=== PATIENT | female | born 1980 | race African-American/Black ===

== ENCOUNTER 2018-09-20 17:04 | Inpatient (IN) | payer OTHER ==
[2018-09-20 18:45] VITALS: BMI 34.9
--- NOTE | 2018-09-20 18:56 | HP ---
CIWA Score - Admission Criteria [facility]ASAS Guidelines: Admission for Medically Managed Detox: Requires at least one of the followin. CIWA greater than 12 2. Seizures within the past 24 hours 3. Delirium tremens within the past 24 hours 4. Hallucinations within the past 24 hours 5. Acute intervention needed for co occurring medical disorder 6. Acute intervention needed for co occurring psychiatric disorder 7. Severe withdrawal that cannot be handled at a lower level of care (continued vomiting, continued diarrhea, abnormal vital signs) requiring intravenous medication and/or fluids 8. Admission ROS [facility] Chief Complaint: SEEKING REHAB SERVICES FOR COCAINE DEPENDENCE. Allergies/Adverse Reactions: Allergies Allergy/AdvReac Type Severity Reaction Status Date / Time Fish Containing Products Allergy Verified 09/20/18 18:46 Penicillins Allergy Verified 09/20/18 18:45 History of Present Illness: 38 Y.O. FEMALE W/ HX/O OPIOID DEPENDENCE HERE FOR REHAB SERVICES. CLIENT IS REFERRED BY [facility] AFTER BEING DETAINEED [facility] FOR 2.5 WEEKS. WHILE THERE SHE WAS STARTED ON METHADONE VIA KEEP PROGRAM. CLIENT REPORTS HER DOSE 60 MG LDM TODAY/ PENDING VERIFICATION. THIS I8S HER FIRST ADMISSION HERE. SHE IS KNOWN TO OTHER DETOX/REHAB SERVICES. LAST BEING AT [facility]. REPORTS LONGEST CLEAN TIME 3 YEARS THROUGH RESIDENTIAL PROGRAM AND THEN SELF MAINTAINED. DENIES HX./O DRUG OVERDOSE, SI/HI, AVH, SEIZURE D/O. SHE REPORTS THAT SHE IS COURT MANDATED. PRIOR TO BEING INCARCERATED CLIENT REPORTS THAT SHE WAS HOMELESS PMHX- HEPC NO TXMNET PSYCH- HX/O BIPOLAR, PTSD MEDS- DENIES Exam Limitations: No Limitations - Ebola screening Have you traveled outside of the country in the last 21 days: No (N) Have you had contact with anyone from an Ebola affected area: No Have you been sick,other than usual withdrawal symptoms: No Do you have a fever: No - Review of Systems Constitutional: No Symptoms Reported EENT: reports: No Symptoms Reported Respiratory: reports: No Symptoms reported Cardiac: reports: No Symptoms Reported GI: reports: Constipated : reports: No Symptoms Reported Musculoskeletal: reports: No Symptoms Reported Integumentary: reports: No Symptoms Reported Neuro: reports: No Symptoms reported Endocrine: reports: No Symptoms Reported Hematology: reports: No Symptoms Reported Psychiatric: reports: No Sypmtoms Reported Other Systems: Reviewed and Negative Patient History - Patient Medical History Hx Anemia: No Hx Asthma: No Hx Chronic Obstructive Pulmonary Disease (COPD): No Hx Cancer: No Hx Cardiac Disorders: No Hx Congestive Heart Failure: No Hx Hypertension: No Hx Hypercholesterolemia: No Hx Pacemaker: No HX Cerebrovascular Accident: No Hx Seizures: No Hx Dementia: No Hx Diabetes: No Hx Gastrointestinal Disorders: No Hx Liver Disease: No Hx Genitourinary Disorders: No Hx Sexually Transmitted Disorders: No Hx Renal Disease (ESRD): No Hx Thyroid Disease: No Hx Human Immunodeficiency Virus (HIV): No Hx Hepatitis C: No Hx Depression: No Hx Suicide Attempt: No Hx Bipolar Disorder: Yes Hx Schizophrenia: No Other Medical History: PTSD - Patient Surgical History Past Surgical History: Yes Hx Lung Surgery: Yes (THORACENTESIS) Hx Section: Yes (X1) Anesthesia Reaction: No - PPD History Previous Implant?: Yes Documented Results: Negative w/o proof Implanted On Prior [facility] Admission?: No PPD to be Administered?: Yes - Reproductive History Patient is a Female of Child Bearing Age (11 -55 yrs old): Yes Last Menstrual Period: 09/14/18 Patient : No (NEG CG) - Smoking Cessation Smoking history: Current every day smoker Have you smoked in the past 12 months: Yes Aproximately how many cigarettes per day: 10 Cigars Per Day: 0 Hx Chewing Tobacco Use: No Initiated information on smoking cessation: Yes 'Breaking Loose' booklet given: 09/20/18 - Substance & Tx. History Hx Alcohol Use: No Hx Substance Use: Yes Substance Use Type: Cocaine, Heroin Hx Substance Use Treatment: Yes ([facility]) - Substances Abused Heroin Route: Injection Frequency: Daily Amount used: 2 BUNDLE Age of first use: 25 Date of Last Use: 09/03/18 Cocaine Route: Smoking Frequency: Daily Amount used: 150$ Age of first use: 25 Date of Last Use: 09/03/18 Family Disease History - Family Disease History Family Disease History: Other: Father (COCAINE/CRACK), Mother (HEROIN ADDICT) Admission Physical Exam [facility] - Vital Signs Vital Signs: Vital Signs - 24 hr 09/20/18 18:31 Temperature 98.2 F Pulse Rate 77 Respiratory 18 Rate Blood Pressure 126/65 - Physical General Appearance: Yes: No Apparent Distress, Appropriately Dressed HEENTM: Yes: EOMI, Normocephalic, Normal Voice, EDER, Pharynx Normal, Other ( EYE GLASSESS) Respiratory: Yes: Chest Non-Tender, Lungs Clear, Normal Breath Sounds, No Respiratory Distress, No Accessory Muscle Use Neck: Yes: No masses,lesions,Nodules, Supple, Trachea in good position Breast: Yes: Breast Exam Deferred Cardiology: Yes: Regular Rhythm, Regular Rate, S1, S2, Edema (BLE), Murmur Abdominal: Yes: Normal Bowel Sounds, Non Tender, Soft, Protuberent Genitourinary: Yes: Within Normal Limits Back: Yes: Normal Inspection Musculoskeletal: Yes: full range of Motion, Gait Steady Extremities: Yes: Normal Capillary Refill, Normal Range of Motion, Non-Tender, Swelling (BLE) Neurological: Yes: cafe server II-XII NML intact, Fully Oriented, Alert, Motor Strength 5/5, Normal Mood/Affect Integumentary: Yes: Dry, Warm Lymphatic: Yes: Within Normal Limits - Diagnostic (1) Uncomplicated opioid dependence Current Visit: Yes Status: Chronic (2) Cocaine dependence, uncomplicated Current Visit: Yes Status: Chronic (3) Nicotine dependence Current Visit: Yes Status: Acute Qualifiers: Nicotine product type: cigarettes Substance use status: in withdrawal Qualified Code(s): F17.213 - Nicotine dependence, cigarettes, with withdrawal (4) History of hepatitis C Current Visit: Yes Status: Chronic (5) Homeless Current Visit: Yes Status: Suspected (6) Substance induced mood disorder Current Visit: Yes Status: Chronic (7) Murmur, cardiac Current Visit: Yes Status: Chronic Cleared for Admission [facility] - Detox or Rehab Detox Regimen/Protocol: Not Applicable Claeared for Rehab Admission: Yes [facility] Breath Alcohol Content Breath Alcohol Content: 0 Urine Pregancy Test - Result Urine Test Results: Negative- NO Line Present Urine Drug Screen - Results Drug Screen Negative: No Urine Drug Screen Results: MTD-Methadone Inpatient Rehab Admission - Initial Determination Are CD services needed?: Yes Free of communicable disease: Yes Not in need of hospitalization: Yes - Rehab Admission Criteria Previous failed treatment: Yes Poor recovery environment: Yes Comorbidities: Yes Lacks judgement: No Patient is meeting Inpatient Rehab admission criteria:: Yes
[2018-09-20] MEDS ORDERED: MAGNESIUM CITRATE 300 ML BOTTLE PO PRN (19:11)
[2018-09-20] MEDS ORDERED: LOPERAMIDE HCL 2 MG CAPSULE PO PRN (19:11)
[2018-09-20] MEDS ORDERED: NICOTINE POLACRILEX 2 MG GUM BC PRN (19:11)
[2018-09-20] MEDS ORDERED: MAG HYDROX/AL HYDROX/SIMETH 30 ML UNIT-DOSE CUP PO PRN (19:11)
[2018-09-20] MEDS ORDERED: P-EPHED 60MG/TRIPROLIDI 2.5MG TABLET PO PRN (19:11)
[2018-09-20] MEDS ORDERED: MELATONIN 5 MG TABLETS PO PRN (22:00)
[2018-09-20] MEDS: THIAMINE HCL 100 MG TABLET (FP) PO SCH (22:32)
--- NOTE | 2018-09-21 09:06 | HP ---
Psychiatrist Admission - Data Vital Signs: Vital Signs - 24 hr 09/20/18 09/20/18 09/21/18 18:31 21:30 03:30 Temperature 98.2 F 98.5 F Pulse Rate 77 75 Respiratory 18 18 18 Rate Blood Pressure 126/65 111/67 09/21/18 07:26 Temperature 97.6 F Pulse Rate 49 L Respiratory 18 Rate Blood Pressure 102/64 Allergies/Adverse Reactions: Allergies Allergy/AdvReac Type Severity Reaction Status Date / Time Fish Containing Products Allergy Verified 09/20/18 18:46 Penicillins Allergy Verified 09/20/18 18:45 Date of last physical exam: 09/20/18
[2018-09-21] MEDS: PRENATAL VITAMINS W/ FOLIC ACID TABLET (FP) PO SCH (09:14)
[2018-09-21] MEDS: NICOTINE 21 MG/24 HOURS TOPICAL PATCH TD SCH (09:14)
[2018-09-21] MEDS ORDERED: METHADONE HCL 10 MG TABLET PO ONE (09:29)
[2018-09-21] MEDS ORDERED: METHADONE 40 MG, METHADONE 20 MG PO ONE (09:45)
[2018-09-21] MEDS ORDERED: METHADONE HCL 40 MG DISPERSABLE TABLET ONE (10:14)
[2018-09-21] MEDS ORDERED: METHADONE HCL 10 MG TABLET ONE (10:14)
--- NOTE | 2018-09-21 10:21 | EKG ---
Test Reason : Blood Pressure : / mmHG Vent. Rate : 069 BPM Atrial Rate : 069 BPM P-R Int : 154 ms QRS Dur : 084 ms QT Int : 416 ms P-R-T Axes : 075 030 023 degrees QTc Int : 445 ms NORMAL SINUS RHYTHM NORMAL ECG NO PREVIOUS ECGS AVAILABLE Confirmed by THOMAS TEAGUE MD ([id number]) on 09/21/2018 10:21:00 AM Referred By: Confirmed By:THOMAS TEAGUE MD
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
[2018-09-21] MEDS: MENTHOL/PHENOL 1 EACH UD MM PRN ×2 (13:21→21:06)
--- NOTE | 2018-09-21 13:46 | PN ---
S Progress Note Note: PT C/O BILATERAL "FEET EDEMA X 2 WEEKS SINCE STARTING METHADONE TREATMENT". DENIES PAIN OR INJURY TO FEET. DENIES CHEST PAIN, COUGH OR FEVER. PT ADMITTED YESTERDAY. HX HEP C, S/P THORACENTESIS. Vital Signs 09/21/18 07:26 Temperature 97.6 F Pulse Rate 49 L Respiratory 18 Rate Blood Pressure 102/64 IMPRESSION:BILATERAL FEET EDEMA LAB RESULTS PENDING PLAN:ELEVATE BOTH LEGS WHILE IN BED.
[2018-09-21 14:54] LABS: HEMATOCRIT 33.2 % (32.4-45.2); HEMOGLOBIN 10.5 GM/dL (10.7-15.3); MCH 25.3 pg (25.7-33.7); MCHC 31.5 g/dl (32.0-36.0); MEAN CELL VOLUME 80.1 fl (80-96); MEAN PLT VOLUME 10.1 fl (7.5-11.1); PLATELET COUNT 196 K/MM3 (134-434); RBC 4.15 M/mm3 (3.60-5.2); RDW 17.6 % (11.6-15.6); WHITE BLOOD COUNT 4.8 K/mm3 (4.0-10.0)
[2018-09-21 14:57] LABS: ALK PHOS 64 U/L (45-117); ANION GAP 6 MMOL/L (8-16); BILIRUBIN,TOTAL 0.2 mg/dL (0.2-1); BLOOD UREA NITROGEN 15 mg/dL (7-18); CALCIUM 8.7 mg/dL (8.5-10.1); CHLORIDE 107 mmol/L (98-107); CO2 27 mmol/L (21-32); CREATININE 0.8 mg/dL (0.55-1.3); GLUCOSE,RANDOM 111 mg/dL (74-106); POTASSIUM 4.2 mmol/L (3.5-5.1); SGOT/AST 68 U/L (15-37); SGPT/ALT 91 U/L (13-61); SODIUM 140 mmol/L (136-145); TOT PROT 6.8 g/dl (6.4-8.2)
[2018-09-21] MEDS ORDERED: PT OWN MED DRAWER 7, Y5N ONE (21:02)
[2018-09-21] MEDS: THIAMINE HCL 100 MG TABLET (FP) PO SCH (21:04)
[2018-09-21] MEDS: MELATONIN 5 MG TABLETS PO PRN (21:04)
[2018-09-22] MEDS ORDERED: METHADONE HCL 10 MG TABLET PO SCH (06:00)
[2018-09-22] MEDS ORDERED: METHADONE HCL 40 MG DISPERSABLE TABLET ONE (06:27)
[2018-09-22] MEDS ORDERED: METHADONE HCL 10 MG TABLET ONE (06:27)
[2018-09-22] MEDS: METHADONE 40 MG, METHADONE 20 MG PO SCH (06:45)
[2018-09-22] MEDS: PRENATAL VITAMINS W/ FOLIC ACID TABLET (FP) PO SCH (09:40)
[2018-09-22] MEDS: NICOTINE 21 MG/24 HOURS TOPICAL PATCH TD SCH (09:40)
--- NOTE | 2018-09-22 14:58 | PN ---
S Progress Note Note: c/o vaginal itch with yellowish discharge. Denies foul odor. Vital Signs 09/22/18 07:05 Temperature 97.9 F Pulse Rate 58 L Respiratory 16 Rate Blood Pressure 120/76 plan;diflucan 150 mg po x 1 increase po fluids. do not use soap on private area.
[2018-09-22] MEDS ORDERED: FLUCONAZOLE 50 MG TABLET PO ONE (15:15)
[2018-09-22] MEDS ORDERED: PT OWN MED DRAWER 7, Y5N ONE ×3 (16:03→23:56)
[2018-09-22] MEDS: hydrOXYzine PAMOATE 50 MG CAPSULE (FP) PO PRN (21:11)
[2018-09-22] MEDS: THIAMINE HCL 100 MG TABLET (FP) PO SCH (21:11)
[2018-09-23] MEDS ORDERED: METHADONE HCL 40 MG DISPERSABLE TABLET ONE (03:11)
[2018-09-23] MEDS ORDERED: METHADONE HCL 10 MG TABLET ONE (03:11)
[2018-09-23] MEDS: METHADONE 40 MG, METHADONE 20 MG PO SCH (06:22)
[2018-09-23] MEDS: PRENATAL VITAMINS W/ FOLIC ACID TABLET (FP) PO SCH (10:22)
[2018-09-23] MEDS: NICOTINE 21 MG/24 HOURS TOPICAL PATCH TD SCH (10:22)
[2018-09-23 10:45] LABS: HEMATOCRIT 34.6 % (32.4-45.2); HEMOGLOBIN 10.8 GM/dL (10.7-15.3); MCH 24.8 pg (25.7-33.7); MCHC 31.2 g/dl (32.0-36.0); MEAN CELL VOLUME 79.6 fl (80-96); MEAN PLT VOLUME 10.2 fl (7.5-11.1); PLATELET COUNT 184 K/MM3 (134-434); RBC 4.35 M/mm3 (3.60-5.2); RDW 17.6 % (11.6-15.6); WHITE BLOOD COUNT 6.2 K/mm3 (4.0-10.0)
[2018-09-23] MEDS: hydrOXYzine PAMOATE 50 MG CAPSULE (FP) PO PRN (21:04)
[2018-09-23] MEDS: THIAMINE HCL 100 MG TABLET (FP) PO SCH (21:04)
[2018-09-24] MEDS ORDERED: METHADONE HCL 10 MG TABLET ONE (05:47)
[2018-09-24] MEDS ORDERED: METHADONE HCL 40 MG DISPERSABLE TABLET ONE (05:48)
[2018-09-24] MEDS: METHADONE 40 MG, METHADONE 20 MG PO SCH (06:32)
[2018-09-24] MEDS: PRENATAL VITAMINS W/ FOLIC ACID TABLET (FP) PO SCH (09:37)
[2018-09-24] MEDS: NICOTINE 21 MG/24 HOURS TOPICAL PATCH TD SCH (09:38)
[2018-09-24] MEDS ORDERED: PT OWN MED DRAWER 7, Y5N ONE ×2 (19:55→23:28)
[2018-09-24] MEDS: THIAMINE HCL 100 MG TABLET (FP) PO SCH (21:48)
[2018-09-24] MEDS: hydrOXYzine PAMOATE 50 MG CAPSULE (FP) PO PRN (21:48)
[2018-09-25] MEDS ORDERED: METHADONE HCL 40 MG DISPERSABLE TABLET ONE (05:56)
[2018-09-25] MEDS ORDERED: METHADONE HCL 10 MG TABLET ONE (05:56)
[2018-09-25] MEDS: METHADONE 40 MG, METHADONE 20 MG PO SCH (06:30)
[2018-09-25] MEDS: NICOTINE 21 MG/24 HOURS TOPICAL PATCH TD SCH (09:39)
[2018-09-25] MEDS: PRENATAL VITAMINS W/ FOLIC ACID TABLET (FP) PO SCH (09:39)
[2018-09-25] MEDS: hydrOXYzine PAMOATE 50 MG CAPSULE (FP) PO PRN (21:39)
[2018-09-25] MEDS: THIAMINE HCL 100 MG TABLET (FP) PO SCH (21:39)
[2018-09-26] MEDS ORDERED: METHADONE HCL 10 MG TABLET ONE (03:20)
[2018-09-26] MEDS ORDERED: METHADONE HCL 40 MG DISPERSABLE TABLET ONE (03:20)
[2018-09-26] MEDS: METHADONE 40 MG, METHADONE 20 MG PO SCH (06:42)
[2018-09-26] MEDS: PRENATAL VITAMINS W/ FOLIC ACID TABLET (FP) PO SCH (09:37)
[2018-09-26] MEDS: NICOTINE 21 MG/24 HOURS TOPICAL PATCH TD SCH (09:37)
[2018-09-26] MEDS: MAGNESIUM HYDROX 2400MG/30ML ORAL SUSPENSION 30 ML CUP PO PRN (11:36)
[2018-09-26 17:22] LABS: URINE APPEARANCE CLOUDY; URINE BILIRUBIN NEGATIVE (<2.0 mg/dL); URINE COLOR YELLOW; URINE GLUCOSE (UA) NEGATIVE (NEGATIVE); URINE KETONE NEGATIVE (NEGATIVE); URINE LEUK ESTERASE 3+ (NEGATIVE); URINE NITRITE NEGATIVE (NEGATIVE); URINE PROTEIN NEGATIVE (NEGATIVE)
[2018-09-26 17:38] LABS: EPI CELLS FEW /HPF (FEW); URINE MUCUS RARE; YEAST FEW
[2018-09-26] MEDS: hydrOXYzine PAMOATE 50 MG CAPSULE (FP) PO PRN (21:30)
[2018-09-26] MEDS: THIAMINE HCL 100 MG TABLET (FP) PO SCH (21:30)
[2018-09-26] MEDS: MICONAZOLE NITRATE 2% VAGINAL CREAM 45 GM TUBE VG SCH (21:32)
[2018-09-27] MEDS ORDERED: METHADONE HCL 10 MG TABLET ONE (03:16)
[2018-09-27] MEDS ORDERED: METHADONE HCL 40 MG DISPERSABLE TABLET ONE (03:16)
[2018-09-27] MEDS: METHADONE 40 MG, METHADONE 20 MG PO SCH (06:29)
[2018-09-27] MEDS: PRENATAL VITAMINS W/ FOLIC ACID TABLET (FP) PO SCH (09:35)
[2018-09-27] MEDS: NICOTINE 21 MG/24 HOURS TOPICAL PATCH TD SCH (09:35)
[2018-09-27] MEDS ORDERED: PT OWN MED DRAWER 7, Y5N ONE (21:22)
[2018-09-27] MEDS: hydrOXYzine PAMOATE 50 MG CAPSULE (FP) PO PRN (21:22)
[2018-09-27] MEDS: THIAMINE HCL 100 MG TABLET (FP) PO SCH (21:22)
[2018-09-27] MEDS: MICONAZOLE NITRATE 2% VAGINAL CREAM 45 GM TUBE VG SCH (21:23)
[2018-09-28] MEDS ORDERED: METHADONE HCL 10 MG TABLET ONE (03:08)
[2018-09-28] MEDS ORDERED: METHADONE HCL 40 MG DISPERSABLE TABLET ONE (03:08)
[2018-09-28] MEDS: METHADONE 40 MG, METHADONE 20 MG PO SCH (06:21)
[2018-09-28] MEDS: PRENATAL VITAMINS W/ FOLIC ACID TABLET (FP) PO SCH (09:32)
[2018-09-28] MEDS: NICOTINE 21 MG/24 HOURS TOPICAL PATCH TD SCH (09:32)
--- NOTE | 2018-09-28 10:13 | PN ---
[facility] Progress Note Note: PATIENT SEEN TO DISCUSS UA RESULTS. CURRENLTY ON VAGINAL CREAM FOR YEAST INFECTION. PATIENT AFEBRILE AND DENIES PELVIC PAIN, BURNING UPON URINATION, FREQUENCY AND URGENCY. Vital Signs Temperature 97.8 F 09/28/18 06:28 Pulse Rate 45 L 09/28/18 06:28 Respiratory Rate 18 09/28/18 06:28 Blood Pressure 117/75 09/28/18 06:28 O2 Sat by Pulse Oximetry (%) Laboratory Tests 09/21/18 09/21/18 09/21/18 09:30 09:30 09:30 WBC 4.8 RBC 4.15 Hgb 10.5 L Hct 33.2 MCV 80.1 MCH 25.3 L MCHC 31.5 L RDW 17.6 H Plt Count 196 MPV 10.1 Sodium 140 Potassium 4.2 Chloride 107 Carbon Dioxide 27 Anion Gap 6 L BUN 15 Creatinine 0.8 Creat Clearance w eGFR > 60 Random Glucose 111 H Calcium 8.7 Total Bilirubin 0.2 AST 68 H ALT 91 H Alkaline Phosphatase 64 Total Protein 6.8 Albumin 3.0 L Urine Color Urine Appearance Urine pH Ur Specific [place] Urine Protein Urine Glucose (UA) Urine Ketones Urine Blood Urine Nitrite Urine Bilirubin Urine Urobilinogen Ur Leukocyte Esterase Urine WBC (Auto) Urine RBC (Auto) Ur Epithelial Cells Urine Mucus Urine Yeast RPR Titer Nonreactive 09/23/18 09/26/18 07:00 16:10 WBC 6.2 RBC 4.35 Hgb 10.8 Hct 34.6 MCV 79.6 L MCH 24.8 L MCHC 31.2 L RDW 17.6 H Plt Count 184 MPV 10.2 Sodium Potassium Chloride Carbon Dioxide Anion Gap BUN Creatinine Creat Clearance w eGFR Random Glucose Calcium Total Bilirubin AST ALT Alkaline Phosphatase Total Protein Albumin Urine Color Yellow Urine Appearance Cloudy Urine pH 7.0 Ur Specific [place] 1.016 Urine Protein Negative Urine Glucose (UA) Negative Urine Ketones Negative Urine Blood Negative Urine Nitrite Negative Urine Bilirubin Negative Urine Urobilinogen 2.0 H Ur Leukocyte Esterase 3+ H Urine WBC (Auto) 176 Urine RBC (Auto) 13 Ur Epithelial Cells Few Urine Mucus Rare Urine Yeast Few RPR Titer UA RESULT APPRECIATED. CONTINUE TREATMENT WITH ANTIFUNGAL VAGINAL CREAM, ENCOURAGE ORAL FLUIDS. CONTINUE TO MONITOR CLINICALLY
[2018-09-28] MEDS: POLYETHYLENE GLYCOL 3350 119 GM BTL PO SCH (13:45)
[2018-09-28] MEDS: THIAMINE HCL 100 MG TABLET (FP) PO SCH (21:24)
[2018-09-28] MEDS: MICONAZOLE NITRATE 2% VAGINAL CREAM 45 GM TUBE VG SCH (21:36)
[2018-09-29] MEDS ORDERED: METHADONE HCL 40 MG DISPERSABLE TABLET ONE (06:14)
[2018-09-29] MEDS ORDERED: METHADONE HCL 10 MG TABLET ONE (06:14)
[2018-09-29] MEDS: METHADONE 40 MG, METHADONE 20 MG PO SCH (06:22)
[2018-09-29] MEDS ORDERED: PT OWN MED DRAWER 7, Y5N ONE ×2 (08:26→21:17)
[2018-09-29] MEDS: PRENATAL VITAMINS W/ FOLIC ACID TABLET (FP) PO SCH (09:37)
[2018-09-29] MEDS: NICOTINE 21 MG/24 HOURS TOPICAL PATCH TD SCH (09:37)
[2018-09-29] MEDS: POLYETHYLENE GLYCOL 3350 119 GM BTL PO SCH (09:38)
[2018-09-29] MEDS: THIAMINE HCL 100 MG TABLET (FP) PO SCH (21:35)
[2018-09-29] MEDS: hydrOXYzine PAMOATE 50 MG CAPSULE (FP) PO PRN (21:35)
[2018-09-29] MEDS: MICONAZOLE NITRATE 2% VAGINAL CREAM 45 GM TUBE VG SCH (21:35)
[2018-09-30] MEDS ORDERED: METHADONE HCL 40 MG DISPERSABLE TABLET ONE (05:46)
[2018-09-30] MEDS ORDERED: METHADONE HCL 10 MG TABLET ONE (05:46)
[2018-09-30] MEDS: METHADONE 40 MG, METHADONE 20 MG PO SCH (06:34)
[2018-09-30] MEDS ORDERED: PT OWN MED DRAWER 7, Y5N ONE (08:08)
[2018-09-30] MEDS: POLYETHYLENE GLYCOL 3350 119 GM BTL PO SCH (09:47)
[2018-09-30] MEDS: NICOTINE 21 MG/24 HOURS TOPICAL PATCH TD SCH (09:47)
[2018-09-30] MEDS: PRENATAL VITAMINS W/ FOLIC ACID TABLET (FP) PO SCH (09:47)
[2018-09-30] MEDS: THIAMINE HCL 100 MG TABLET (FP) PO SCH (21:30)
[2018-09-30] MEDS: hydrOXYzine PAMOATE 50 MG CAPSULE (FP) PO PRN (21:30)
[2018-09-30] MEDS: MICONAZOLE NITRATE 2% VAGINAL CREAM 45 GM TUBE VG SCH (21:30)
[2018-10-01] MEDS ORDERED: METHADONE HCL 40 MG DISPERSABLE TABLET ONE (03:24)
[2018-10-01] MEDS ORDERED: METHADONE HCL 10 MG TABLET ONE (03:24)
[2018-10-01] MEDS: METHADONE 40 MG, METHADONE 20 MG PO SCH (06:48)
[2018-10-01] MEDS ORDERED: PT OWN MED DRAWER 7, Y5N ONE ×2 (08:14→19:20)
[2018-10-01] MEDS: NICOTINE 21 MG/24 HOURS TOPICAL PATCH TD SCH (09:32)
[2018-10-01] MEDS: POLYETHYLENE GLYCOL 3350 119 GM BTL PO SCH (09:32)
[2018-10-01] MEDS: PRENATAL VITAMINS W/ FOLIC ACID TABLET (FP) PO SCH (09:33)
[2018-10-01] MEDS: MELATONIN 5 MG TABLETS PO PRN (21:08)
[2018-10-01] MEDS: MICONAZOLE NITRATE 2% VAGINAL CREAM 45 GM TUBE VG SCH (21:08)
[2018-10-01] MEDS: hydrOXYzine PAMOATE 50 MG CAPSULE (FP) PO PRN (21:08)
[2018-10-01] MEDS: THIAMINE HCL 100 MG TABLET (FP) PO SCH (21:08)
[2018-10-02] MEDS ORDERED: METHADONE HCL 10 MG TABLET ONE (03:48)
[2018-10-02] MEDS ORDERED: METHADONE HCL 40 MG DISPERSABLE TABLET ONE (03:48)
[2018-10-02] MEDS: METHADONE 40 MG, METHADONE 20 MG PO SCH (06:45)
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
[2018-10-02] MEDS ORDERED: PT OWN MED DRAWER 7, Y5N ONE (08:52)
[2018-10-02] MEDS: NICOTINE 21 MG/24 HOURS TOPICAL PATCH TD SCH (09:56)
[2018-10-02] MEDS: PRENATAL VITAMINS W/ FOLIC ACID TABLET (FP) PO SCH (09:56)
[2018-10-02] MEDS: POLYETHYLENE GLYCOL 3350 119 GM BTL PO SCH (09:56)
[2018-10-02] MEDS: MICONAZOLE NITRATE 2% VAGINAL CREAM 45 GM TUBE VG SCH (21:11)
[2018-10-02] MEDS: hydrOXYzine PAMOATE 50 MG CAPSULE (FP) PO PRN (21:11)
[2018-10-02] MEDS: THIAMINE HCL 100 MG TABLET (FP) PO SCH (21:11)
[2018-10-03] MEDS ORDERED: METHADONE HCL 40 MG DISPERSABLE TABLET ONE (03:22)
[2018-10-03] MEDS ORDERED: METHADONE HCL 10 MG TABLET ONE (03:22)
[2018-10-03] MEDS: METHADONE 40 MG, METHADONE 20 MG PO SCH (06:36)
[2018-10-03] MEDS: PRENATAL VITAMINS W/ FOLIC ACID TABLET (FP) PO SCH (09:40)
[2018-10-03] MEDS: NICOTINE 21 MG/24 HOURS TOPICAL PATCH TD SCH (09:40)
[2018-10-03] MEDS: POLYETHYLENE GLYCOL 3350 119 GM BTL PO SCH (09:40)
[2018-10-03] MEDS: MAGNESIUM HYDROX 2400MG/30ML ORAL SUSPENSION 30 ML CUP PO PRN (09:42)
[2018-10-03] MEDS: THIAMINE HCL 100 MG TABLET (FP) PO SCH (21:13)
[2018-10-03] MEDS: hydrOXYzine PAMOATE 50 MG CAPSULE (FP) PO PRN (21:13)
[2018-10-03] MEDS: IBUPROFEN 400 MG TABLET (FP) PO PRN (21:14)
[2018-10-04] MEDS ORDERED: METHADONE HCL 10 MG TABLET ONE (05:53)
[2018-10-04] MEDS ORDERED: METHADONE HCL 40 MG DISPERSABLE TABLET ONE (05:55)
[2018-10-04] MEDS: METHADONE 40 MG, METHADONE 20 MG PO SCH (06:30)
[2018-10-04] MEDS ORDERED: PT OWN MED DRAWER 7, Y5N ONE (08:13)
[2018-10-04] MEDS: POLYETHYLENE GLYCOL 3350 119 GM BTL PO SCH (09:39)
[2018-10-04] MEDS: PRENATAL VITAMINS W/ FOLIC ACID TABLET (FP) PO SCH (09:39)
[2018-10-04] MEDS: NICOTINE 21 MG/24 HOURS TOPICAL PATCH TD SCH (09:39)
[2018-10-04] MEDS: MAGNESIUM HYDROX 2400MG/30ML ORAL SUSPENSION 30 ML CUP PO PRN (09:41)
[2018-10-04] MEDS: IBUPROFEN 400 MG TABLET (FP) PO PRN ×2 (09:41→20:59)
[2018-10-04] MEDS: THIAMINE HCL 100 MG TABLET (FP) PO SCH (21:00)
[2018-10-04] MEDS: hydrOXYzine PAMOATE 50 MG CAPSULE (FP) PO PRN (21:00)
[2018-10-05] MEDS ORDERED: METHADONE HCL 10 MG TABLET PO SCH (06:00)
[2018-10-05] MEDS ORDERED: METHADONE HCL 10 MG TABLET ONE (06:18)
[2018-10-05] MEDS ORDERED: METHADONE HCL 40 MG DISPERSABLE TABLET ONE (06:19)
[2018-10-05] MEDS: METHADONE 40 MG, METHADONE 20 MG PO SCH (06:25)
[2018-10-05] MEDS: POLYETHYLENE GLYCOL 3350 119 GM BTL PO SCH (09:30)
[2018-10-05] MEDS: PRENATAL VITAMINS W/ FOLIC ACID TABLET (FP) PO SCH (09:30)
[2018-10-05] MEDS: NICOTINE 21 MG/24 HOURS TOPICAL PATCH TD SCH (09:30)
[2018-10-05] MEDS: THIAMINE HCL 100 MG TABLET (FP) PO SCH (21:10)
[2018-10-05] MEDS: hydrOXYzine PAMOATE 50 MG CAPSULE (FP) PO PRN (21:10)
[2018-10-05] MEDS: IBUPROFEN 400 MG TABLET (FP) PO PRN (21:11)
[2018-10-06] MEDS ORDERED: METHADONE HCL 10 MG TABLET ONE (03:17)
[2018-10-06] MEDS ORDERED: METHADONE HCL 40 MG DISPERSABLE TABLET ONE (03:17)
[2018-10-06] MEDS: METHADONE 40 MG, METHADONE 20 MG PO SCH (06:36)
[2018-10-06] MEDS ORDERED: PT OWN MED DRAWER 7, Y5N ONE ×4 (08:40→22:05)
[2018-10-06] MEDS: POLYETHYLENE GLYCOL 3350 119 GM BTL PO SCH (09:41)
[2018-10-06] MEDS: NICOTINE 21 MG/24 HOURS TOPICAL PATCH TD SCH (09:42)
[2018-10-06] MEDS: IBUPROFEN 400 MG TABLET (FP) PO PRN (09:42)
[2018-10-06] MEDS: PRENATAL VITAMINS W/ FOLIC ACID TABLET (FP) PO SCH (09:42)
--- NOTE | 2018-10-06 15:28 | PN ---
[facility] Progress Note Note: PATIENT C/O INSOMNIA AND STATES VISTARIL 50MG HELPS BUT VERY LITTLE. PATIENT REFERRED FOR PSYCH EVALUATION FOR INSOMNIA BUT FOR NOW WILL TREAT WITH VISTARIL 100MG HS PRN. WILL CONTINUE TO MONITOR CLINICALLY.
[2018-10-06] MEDS: hydrOXYzine PAMOATE 50 MG CAPSULE (FP) PO PRN (21:34)
[2018-10-06] MEDS: THIAMINE HCL 100 MG TABLET (FP) PO SCH (21:34)
[2018-10-07] MEDS ORDERED: METHADONE HCL 10 MG TABLET ONE (05:47)
[2018-10-07] MEDS ORDERED: METHADONE HCL 40 MG DISPERSABLE TABLET ONE (05:47)
[2018-10-07] MEDS: METHADONE 40 MG, METHADONE 20 MG PO SCH (08:13)
[2018-10-07] MEDS ORDERED: METHADONE HCL 10 MG TABLET PO ONE (09:44)
[2018-10-07] MEDS ORDERED: METHADONE 40 MG, METHADONE 20 MG PO ONE (10:30)
[2018-10-07] MEDS: PRENATAL VITAMINS W/ FOLIC ACID TABLET (FP) PO SCH (10:35)
[2018-10-07] MEDS: NICOTINE 21 MG/24 HOURS TOPICAL PATCH TD SCH (10:35)
[2018-10-07] MEDS: POLYETHYLENE GLYCOL 3350 119 GM BTL PO SCH (10:37)
[2018-10-07] MEDS ORDERED: PT OWN MED DRAWER 7, Y5N ONE (10:38)
--- NOTE | 2018-10-07 11:22 | PN ---
[facility] Progress Note Note: Pt requesting increase in methadone dose. Pt is getting methadone 60mg/day. She was started on this at [facility] and does not have a program to be referred to yet. Pt would like to go to long term care pharmacist rehab- but not sure if rehab will accept pt on methadone. Pt will discuss with counselor.
[2018-10-07] MEDS: THIAMINE HCL 100 MG TABLET (FP) PO SCH (21:25)
[2018-10-07] MEDS: hydrOXYzine PAMOATE 50 MG CAPSULE (FP) PO PRN (21:25)
[2018-10-08] MEDS ORDERED: METHADONE HCL 40 MG DISPERSABLE TABLET ONE (06:30)
[2018-10-08] MEDS ORDERED: METHADONE HCL 10 MG TABLET ONE (06:30)
[2018-10-08] MEDS: METHADONE 40 MG, METHADONE 20 MG PO SCH (06:31)
[2018-10-08] MEDS ORDERED: PT OWN MED DRAWER 7, Y5N ONE (08:44)
[2018-10-08] MEDS: POLYETHYLENE GLYCOL 3350 119 GM BTL PO SCH (09:36)
[2018-10-08] MEDS: NICOTINE 21 MG/24 HOURS TOPICAL PATCH TD SCH (09:36)
[2018-10-08] MEDS: PRENATAL VITAMINS W/ FOLIC ACID TABLET (FP) PO SCH (09:36)
[2018-10-08] MEDS: THIAMINE HCL 100 MG TABLET (FP) PO SCH (21:39)
[2018-10-08] MEDS: hydrOXYzine PAMOATE 50 MG CAPSULE (FP) PO PRN (21:39)
[2018-10-08] MEDS: IBUPROFEN 400 MG TABLET (FP) PO PRN (21:39)
[2018-10-09] MEDS ORDERED: METHADONE HCL 10 MG TABLET ONE (05:49)
[2018-10-09] MEDS ORDERED: METHADONE HCL 40 MG DISPERSABLE TABLET ONE (05:50)
[2018-10-09] MEDS: METHADONE 40 MG, METHADONE 20 MG PO SCH (06:32)
[2018-10-09] MEDS: PRENATAL VITAMINS W/ FOLIC ACID TABLET (FP) PO SCH (09:20)
[2018-10-09] MEDS: POLYETHYLENE GLYCOL 3350 119 GM BTL PO SCH (09:21)
[2018-10-09] MEDS: NICOTINE 21 MG/24 HOURS TOPICAL PATCH TD SCH (09:27)
[2018-10-09] MEDS: THIAMINE HCL 100 MG TABLET (FP) PO SCH (21:38)
[2018-10-09] MEDS: hydrOXYzine PAMOATE 50 MG CAPSULE (FP) PO PRN (21:38)
[2018-10-09] MEDS ORDERED: PT OWN MED DRAWER 7, Y5N ONE (22:27)
[2018-10-10] MEDS ORDERED: METHADONE HCL 10 MG TABLET ONE (03:33)
[2018-10-10] MEDS ORDERED: METHADONE HCL 40 MG DISPERSABLE TABLET ONE (03:34)
[2018-10-10] MEDS: METHADONE 40 MG, METHADONE 20 MG PO SCH (06:54)
[2018-10-10] MEDS: POLYETHYLENE GLYCOL 3350 119 GM BTL PO SCH (09:35)
[2018-10-10] MEDS: NICOTINE 21 MG/24 HOURS TOPICAL PATCH TD SCH (09:37)
[2018-10-10] MEDS: PRENATAL VITAMINS W/ FOLIC ACID TABLET (FP) PO SCH (09:37)
[2018-10-10] MEDS: IBUPROFEN 400 MG TABLET (FP) PO PRN (09:38)
[2018-10-10] MEDS: THIAMINE HCL 100 MG TABLET (FP) PO SCH (21:18)
[2018-10-10] MEDS: hydrOXYzine PAMOATE 50 MG CAPSULE (FP) PO PRN (21:18)
[2018-10-10] MEDS ORDERED: PT OWN MED DRAWER 7, Y5N ONE (22:40)
[2018-10-11] MEDS ORDERED: METHADONE HCL 10 MG TABLET ONE (02:58)
[2018-10-11] MEDS ORDERED: METHADONE HCL 40 MG DISPERSABLE TABLET ONE (02:59)
[2018-10-11] MEDS: METHADONE 40 MG, METHADONE 20 MG PO SCH (06:46)
[2018-10-11] MEDS: PRENATAL VITAMINS W/ FOLIC ACID TABLET (FP) PO SCH (09:42)
[2018-10-11] MEDS: POLYETHYLENE GLYCOL 3350 119 GM BTL PO SCH (09:42)
[2018-10-11] MEDS: NICOTINE 21 MG/24 HOURS TOPICAL PATCH TD SCH (09:42)
[2018-10-11] MEDS: hydrOXYzine PAMOATE 50 MG CAPSULE (FP) PO PRN (21:15)
[2018-10-11] MEDS: THIAMINE HCL 100 MG TABLET (FP) PO SCH (21:15)
[2018-10-11] MEDS ORDERED: PT OWN MED DRAWER 7, Y5N ONE (21:24)
[2018-10-12 01:12] LABS: URINE APPEARANCE CLEAR; URINE BILIRUBIN NEGATIVE (<2.0 mg/dL); URINE COLOR YELLOW; URINE GLUCOSE (UA) NEGATIVE (NEGATIVE); URINE KETONE NEGATIVE (NEGATIVE); URINE LEUK ESTERASE 3+ (NEGATIVE); URINE NITRITE NEGATIVE (NEGATIVE); URINE PROTEIN NEGATIVE (NEGATIVE)
[2018-10-12 01:29] LABS: EPI CELLS RARE /HPF (FEW)
[2018-10-12] MEDS ORDERED: METHADONE HCL 10 MG TABLET PO SCH (06:00)
[2018-10-12] MEDS ORDERED: METHADONE HCL 10 MG TABLET ONE (06:31)
[2018-10-12] MEDS ORDERED: METHADONE HCL 40 MG DISPERSABLE TABLET ONE (06:31)
[2018-10-12] MEDS: METHADONE 40 MG, METHADONE 20 MG PO SCH (06:40)
[2018-10-12] MEDS ORDERED: PT OWN MED DRAWER 7, Y5N ONE (08:23)
[2018-10-12] MEDS: PRENATAL VITAMINS W/ FOLIC ACID TABLET (FP) PO SCH (09:44)
[2018-10-12] MEDS: POLYETHYLENE GLYCOL 3350 119 GM BTL PO SCH (09:46)
[2018-10-12] MEDS: NICOTINE 21 MG/24 HOURS TOPICAL PATCH TD SCH (09:46)
--- NOTE | 2018-10-12 10:11 | PN ---
[facility] Progress Note Note: PT CONTINUES TO C/O VAGINAL DISCHARGE AND FOUL SMELL. TREATED FOR CANDIDIASIS WITH SOME RELIEF BUT NOW C/O VAGINAL FOUL SMELL WITH YELLOW DISCHARGE AND UNCOMFORTABLE GOING TO GROUP. PT HAS NEGATIVE REPORTS OF STD-CHLAMYDIA, TESTED IN HALFWAY BEFORE COMING TO TREATMENT. Vital Signs 10/12/18 07:00 Temperature 98.1 F Pulse Rate 60 Respiratory 18 Rate Blood Pressure 105/69 Laboratory Tests 09/21/18 09/21/18 09/21/18 09:30 09:30 09:30 WBC 4.8 RBC 4.15 Hgb 10.5 L Hct 33.2 MCV 80.1 MCH 25.3 L MCHC 31.5 L RDW 17.6 H Plt Count 196 MPV 10.1 Sodium 140 Potassium 4.2 Chloride 107 Carbon Dioxide 27 Anion Gap 6 L BUN 15 Creatinine 0.8 Creat Clearance w eGFR > 60 Random Glucose 111 H Calcium 8.7 Total Bilirubin 0.2 AST 68 H ALT 91 H Alkaline Phosphatase 64 Total Protein 6.8 Albumin 3.0 L Urine Color Urine Appearance Urine pH Ur Specific [place] Urine Protein Urine Glucose (UA) Urine Ketones Urine Blood Urine Nitrite Urine Bilirubin Urine Urobilinogen Ur Leukocyte Esterase Urine WBC (Auto) Urine RBC (Auto) Ur Epithelial Cells Urine Mucus Urine Yeast RPR Titer Nonreactive 09/23/18 09/26/18 10/12/18 07:00 16:10 00:05 WBC 6.2 RBC 4.35 Hgb 10.8 Hct 34.6 MCV 79.6 L MCH 24.8 L MCHC 31.2 L RDW 17.6 H Plt Count 184 MPV 10.2 Sodium Potassium Chloride Carbon Dioxide Anion Gap BUN Creatinine Creat Clearance w eGFR Random Glucose Calcium Total Bilirubin AST ALT Alkaline Phosphatase Total Protein Albumin Urine Color Yellow Yellow Urine Appearance Cloudy Clear Urine pH 7.0 6.0 Ur Specific [place] 1.016 1.018 Urine Protein Negative Negative Urine Glucose (UA) Negative Negative Urine Ketones Negative Negative Urine Blood Negative Negative Urine Nitrite Negative Negative Urine Bilirubin Negative Negative Urine Urobilinogen 2.0 H 2.0 H Ur Leukocyte Esterase 3+ H 3+ H Urine WBC (Auto) 176 23 Urine RBC (Auto) 13 1 Ur Epithelial Cells Few Rare Urine Mucus Rare Urine Yeast Few RPR Titer UC PENDING PLAN;F/U WITH UC RESULT MAY START ON FLAGYL IF SX PERSISTS
[2018-10-12] MEDS: THIAMINE HCL 100 MG TABLET (FP) PO SCH (21:49)
[2018-10-12] MEDS: hydrOXYzine PAMOATE 50 MG CAPSULE (FP) PO PRN (21:50)
[2018-10-13] MEDS ORDERED: METHADONE HCL 10 MG TABLET ONE (02:53)
[2018-10-13] MEDS ORDERED: METHADONE HCL 40 MG DISPERSABLE TABLET ONE (02:54)
[2018-10-13] MEDS: METHADONE 40 MG, METHADONE 20 MG PO SCH (06:43)
[2018-10-13] MEDS ORDERED: PT OWN MED DRAWER 7, Y5N ONE (08:37)
[2018-10-13] MEDS: PRENATAL VITAMINS W/ FOLIC ACID TABLET (FP) PO SCH (09:50)
[2018-10-13] MEDS: guaiFENesin/D-METHORPHAN HB 10 ML UNIT-DOSE CUPS PO PRN ×2 (09:50→15:57)
[2018-10-13] MEDS: POLYETHYLENE GLYCOL 3350 119 GM BTL PO SCH (09:50)
[2018-10-13] MEDS: NICOTINE 21 MG/24 HOURS TOPICAL PATCH TD SCH (09:51)
[2018-10-13] MEDS: ACETAMINOPHEN 325 MG TABLET (FP) PO PRN (15:57)
--- NOTE | 2018-10-13 16:02 | PN ---
S Progress Note Note: Microbiology 10/12/18 00:05 Urine - Urine Clean Catch Urine Culture - Final Contaminated: Please Repeat REVIEWED LAB ABOVE. PT REFUSED RPEAT URINE TEST PER NURSE. WILL FOLLOW UP WITH PATIENT.
[2018-10-13] MEDS: THIAMINE HCL 100 MG TABLET (FP) PO SCH (22:05)
[2018-10-14] MEDS ORDERED: METHADONE HCL 10 MG TABLET ONE (05:49)
[2018-10-14] MEDS ORDERED: METHADONE HCL 40 MG DISPERSABLE TABLET ONE (05:50)
[2018-10-14] MEDS: METHADONE 40 MG, METHADONE 20 MG PO SCH (06:36)
[2018-10-14] MEDS: POLYETHYLENE GLYCOL 3350 119 GM BTL PO SCH (09:42)
[2018-10-14] MEDS: guaiFENesin/D-METHORPHAN HB 10 ML UNIT-DOSE CUPS PO PRN (09:42)
[2018-10-14] MEDS: NICOTINE 21 MG/24 HOURS TOPICAL PATCH TD SCH (09:42)
[2018-10-14] MEDS: PRENATAL VITAMINS W/ FOLIC ACID TABLET (FP) PO SCH (09:42)
[2018-10-14] MEDS: ACETAMINOPHEN 325 MG TABLET (FP) PO PRN (09:42)
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
[2018-10-14] MEDS ORDERED: DOXYCYCLINE HYCLATE 100 MG TABLET PO ONE (14:12)
[2018-10-14] MEDS: MENTHOL/PHENOL 1 EACH UD MM PRN (14:55)
[2018-10-14] MEDS: DOXYCYCLINE HYCLATE 100 MG TABLET PO SCH (18:23)
[2018-10-14] MEDS: THIAMINE HCL 100 MG TABLET (FP) PO SCH (22:19)
[2018-10-14] MEDS: hydrOXYzine PAMOATE 50 MG CAPSULE (FP) PO PRN (22:19)
[2018-10-15] MEDS ORDERED: METHADONE HCL 40 MG DISPERSABLE TABLET ONE (02:54)
[2018-10-15] MEDS ORDERED: METHADONE HCL 10 MG TABLET ONE (02:54)
[2018-10-15] MEDS: METHADONE 40 MG, METHADONE 20 MG PO SCH (06:47)
[2018-10-15] MEDS ORDERED: PT OWN MED DRAWER 7, Y5N ONE ×2 (08:20→21:38)
[2018-10-15] MEDS: POLYETHYLENE GLYCOL 3350 119 GM BTL PO SCH (09:42)
[2018-10-15] MEDS: NICOTINE 21 MG/24 HOURS TOPICAL PATCH TD SCH (09:44)
[2018-10-15] MEDS: DOXYCYCLINE HYCLATE 100 MG TABLET PO SCH ×2 (09:44→18:40)
[2018-10-15] MEDS: PRENATAL VITAMINS W/ FOLIC ACID TABLET (FP) PO SCH (09:44)
[2018-10-15] MEDS: ACETAMINOPHEN 325 MG TABLET (FP) PO PRN ×2 (09:45→21:27)
[2018-10-15] MEDS: guaiFENesin/D-METHORPHAN HB 10 ML UNIT-DOSE CUPS PO PRN ×2 (09:45→21:27)
[2018-10-15] MEDS: THIAMINE HCL 100 MG TABLET (FP) PO SCH (21:25)
[2018-10-15] MEDS: hydrOXYzine PAMOATE 50 MG CAPSULE (FP) PO PRN (21:25)
[2018-10-16] MEDS ORDERED: METHADONE HCL 10 MG TABLET ONE (03:12)
[2018-10-16] MEDS ORDERED: METHADONE HCL 40 MG DISPERSABLE TABLET ONE (03:13)
[2018-10-16] MEDS: METHADONE 40 MG, METHADONE 20 MG PO SCH (06:40)
[2018-10-16] MEDS: POLYETHYLENE GLYCOL 3350 119 GM BTL PO SCH (09:36)
[2018-10-16] MEDS: PRENATAL VITAMINS W/ FOLIC ACID TABLET (FP) PO SCH (09:37)
[2018-10-16] MEDS: DOXYCYCLINE HYCLATE 100 MG TABLET PO SCH ×2 (09:37→17:55)
[2018-10-16] MEDS: NICOTINE 21 MG/24 HOURS TOPICAL PATCH TD SCH (09:37)
[2018-10-16] MEDS: ACETAMINOPHEN 325 MG TABLET (FP) PO PRN (09:38)
[2018-10-16] MEDS: guaiFENesin/D-METHORPHAN HB 10 ML UNIT-DOSE CUPS PO PRN (09:39)
[2018-10-16] MEDS: hydrOXYzine PAMOATE 50 MG CAPSULE (FP) PO PRN (21:20)
[2018-10-16] MEDS: THIAMINE HCL 100 MG TABLET (FP) PO SCH (21:20)
[2018-10-16] MEDS ORDERED: PT OWN MED DRAWER 7, Y5N ONE ×2 (21:34→21:35)
[2018-10-17] MEDS ORDERED: METHADONE HCL 10 MG TABLET ONE (03:03)
[2018-10-17] MEDS ORDERED: METHADONE HCL 40 MG DISPERSABLE TABLET ONE (03:04)
[2018-10-17] MEDS: METHADONE 40 MG, METHADONE 20 MG PO SCH (06:35)
[2018-10-17] MEDS: DOXYCYCLINE HYCLATE 100 MG TABLET PO SCH ×2 (09:31→18:30)
[2018-10-17] MEDS: NICOTINE 21 MG/24 HOURS TOPICAL PATCH TD SCH (09:31)
[2018-10-17] MEDS: PRENATAL VITAMINS W/ FOLIC ACID TABLET (FP) PO SCH (09:31)
[2018-10-17] MEDS: ACETAMINOPHEN 325 MG TABLET (FP) PO PRN ×2 (09:31→21:12)
[2018-10-17] MEDS: guaiFENesin/D-METHORPHAN HB 10 ML UNIT-DOSE CUPS PO PRN ×2 (09:31→21:14)
[2018-10-17] MEDS: POLYETHYLENE GLYCOL 3350 119 GM BTL PO SCH (09:35)
[2018-10-17] MEDS ORDERED: PT OWN MED DRAWER 7, Y5N ONE ×3 (21:09→23:07)
[2018-10-17] MEDS: THIAMINE HCL 100 MG TABLET (FP) PO SCH (21:11)
[2018-10-17] MEDS: hydrOXYzine PAMOATE 50 MG CAPSULE (FP) PO PRN (21:11)
[2018-10-18] MEDS ORDERED: METHADONE HCL 10 MG TABLET ONE (05:53)
[2018-10-18] MEDS ORDERED: METHADONE HCL 40 MG DISPERSABLE TABLET ONE (05:53)
[2018-10-18] MEDS ORDERED: METHADONE 40 MG, METHADONE 20 MG PO SCH (06:00)
[2018-10-18 07:05] VITALS: BP 111/75; PULSE 56; TEMP 97.2
[2018-10-18] MEDS ORDERED: PT OWN MED DRAWER 7, Y5N ONE (08:25)
[2018-10-18] MEDS: NICOTINE 21 MG/24 HOURS TOPICAL PATCH TD SCH (09:13)
[2018-10-18] MEDS: PRENATAL VITAMINS W/ FOLIC ACID TABLET (FP) PO SCH (09:13)
[2018-10-18] MEDS: POLYETHYLENE GLYCOL 3350 119 GM BTL PO SCH (09:13)
[2018-10-18] MEDS: DOXYCYCLINE HYCLATE 100 MG TABLET PO SCH (09:13)
[2018-10-18] MEDS: guaiFENesin/D-METHORPHAN HB 10 ML UNIT-DOSE CUPS PO PRN (09:14)
--- NOTE | 2018-10-18 09:45 | PN ---
[facility] Progress Note Note: Patient completed this program today.She has met her treatment goals and will continue to address her issues on outpatient basis at [facility].Patient is stable for discharge today.
--- NOTE | 2018-10-18 09:49 | PN ---
[facility] Progress Note Note: PT COMPLETED REHAB AND DISCHARGING TODAY. ALERT O X 3. REPORTS SHE IS REFERRED TO [facility] WITH AN OUT PATIENT PROGRAM TREATMENT. PT STATES SHE WILL BE NEW TO THE LOCATION AND WILL FIND A PRIMARY CARE/LICENSED APPRAISER ONCE SITUATED THERE. PT REPORTS HER VAGINAL COMPLAINTS IS MUCH BETTER AND HER URI IS RESOLVING. PT DOES NOT HAVE PCP AT THIS TIME. COURTESY RX DOXYCYCLINE 100 MG PO BID #10 AND MIRILAX X1 SENT TO [facility] FOR GUITAR INSTRUCTOR UPON DISCHARGE. Vital Signs 10/18/18 10/18/18 03:30 07:04 Temperature 97.2 F L Pulse Rate 56 L Respiratory 18 18 Rate Blood Pressure 111/75 NAD PETER MMTP PLAN:FOLLOW UP WITH AFTERCARE RECOMMENDATIONS FOLLOW UP WITH SET UP WITH PCP COMPLETE REMAINING DOSES OF ANTIBIOTICS TREATMENT ABOVE.
== END 2018-10-18 10:06 | disposition home or self-care (01) | DRG 724 ==
LOC: YASAS 17:04 → Y3E 19:24
PROVIDERS: ADMIT Psychiatry & Neurology Psychiatry; ATTEND Psychiatry & Neurology Psychiatry
PROC: HZ40ZZZ Group Counseling for Substance Abuse Treatment, Cognitive (ICD-10-PCS; principal; 2018-09-20)
DX: B37.9 Candidiasis, unspecified (principal); F11.20 Opioid dependence, uncomplicated; F14.20 Cocaine dependence, uncomplicated; F17.210 Nicotine dependence, cigarettes, uncomplicated; F43.10 Post-traumatic stress disorder, unspecified; F31.9 Bipolar disorder, unspecified; F19.24 Other psychoactive substance dependence with psychoactive substance-induced mood disorder; B37.3 Candidiasis of vulva and vagina; R60.0 Localized edema; J40 Bronchitis, not specified as acute or chronic; R01.1 Cardiac murmur, unspecified; Z86.19 Personal history of other infectious and parasitic diseases; Z87.19 Personal history of other diseases of the digestive system; Z59.0 Homelessness
CPT/HCPCS: 36415; 80053; 81003; 81015; 85027; 86593; 87086; 93005; 93010